=== PATIENT | female | born 1995 | race Caucasian/White ===

== ENCOUNTER 2021-08-03 21:01 | Emergency (ER) | payer SELFPAY ==
[2021-08-03 21:08] VITALS: BP 145/81; PULSE 94; RESP 18; TEMP 36.1; O2SAT 100
[2021-08-03 22:21] VITALS: BP 142/83; PULSE 105; RESP 20; TEMP 37.2; O2SAT 100
--- NOTE | 2021-08-03 22:23 | ECG_ITS ---
Measurements Intervals [place] Rate: 87 P: 72 OR: 127 QRS: 58 QRSD: 78 T: 5 QT: 344 QTc: 414 Interpretive Statements SINUS RHYTHM BORDERLINE ST-T WAVE ABNORMALITY- ANT/INF LEADS BORDERLINE ECG Electronically Signed On 08-04-2021 7:12:29 CDT by Elvis Caldwell D.O.
--- NOTE | 2021-08-03 22:24 | ED.GENADULT ---
HPI - General Adult General Chief complaint: Unspecified Stated complaint: almost passed out/having miscarriage Time Seen by Provider: 08/03/21 22:19 Source: patient History of Present Illness HPI narrative: Patient presents with dizziness. Patient reports she was waiting in line to for dinner when she had sudden onset of abdominal pain that was sharp, some lightheadedness she sat down and her symptoms improved after a minute. She was recently evaluated at an urgent care and diagnosed with a early miscarriage she was unsure if today's symptoms were related to that diagnosis so she came to the ER for further evaluation. Patient ports she has no complaints at this time. Reports her pain and bleeding have been improving since her diagnosis. Denies any recent hospitalizations or surgeries denies prior history of blood clots denies any chest pain shortness of breath or current lightheadedness. Denies any recent fevers, cough, congestion. Related Data Home Medications Medication Instructions Recorded Confirmed No Home Medications 08/03/21 08/03/21 Allergies Allergy/AdvReac Type Severity Reaction Status Date / Time No Known Allergies Allergy Verified 08/03/21 21:02 Review of Systems Review of Systems: CONSTITUTIONAL: Denies fever, chills, or sweats. EYES: Denies visual changes, redness, or discharge. ENT: Denies rhinorrhea, congestion, sore throat, or otalgia. CARDIOVASCULAR: Denies chest pain, palpitations, or edema. RESPIRATORY: Denies cough or dyspnea. GASTROINTESTINAL: Denies abdominal pain, nausea, vomiting, or diarrhea. GENITOURINARY: Denies dysuria or hematuria. SKIN: Denies rash or itching. MUSCULOSKELETAL: Denies back pain, joint pain, or myalgia. NEUROLOGIC: Denies headache, numbness, or weakness. PSYCHIATRIC: Denies anxiety or depression. All systems reviewed & are unremarkable except as noted in HPI and below Exam Narrative: GENERAL: Well-appearing, well-nourished, and in no acute distress. HEAD: Normocephalic, atraumatic. EYES: PERRLA and EOMI. ENT: Nares clear, no rhinorrhea or epistaxis. Mucous membranes moist. NECK: Supple. No masses. No JVD CHEST: Clear to auscultation. No respiratory distress. No wheezes rales or rhonchi HEART: Regular rate and rhythm. No murmur heard. Normal peripheral pulses. ABDOMEN: Soft, nontender, nondistended, normal active bowel sounds. EXTREMITIES: Normal range of motion. No edema. SKIN: Warm, dry, no rash. NEURO: No focal deficits. Alert and oriented x3. PSYCH: Normal mood and affect. Course Reevaluation(s) Reevaluation #1: Patient resting comfortably results reviewed with patient. Patient's hCG was 14 however she is going through a miscarriage that she would be approximately 6 weeks if she had continued her . Patient had no pelvic pain at the time of my exam she was offered further imaging however given the low hCG unlikely to to show any abnormalities. Given patient is currently going through miscarriage is hCG is likely downtrending. Patient was comfortable without pursuing further imaging at this time as she is remained asymptomatic throughout her ER stay. Patient prefers to follow-up with primary care physician and OB. Patient's has had some difficulty finding a provider who will take her insurance she was given a directory and list of PCM as well as OBs in the area Date: 08/04/21 Time: 00:10 Vital Signs Vital signs: Vital Signs Temperature 36.1 C L 08/03/21 21:08 Pulse Rate 94 08/03/21 21:08 Respiratory Rate 18 08/03/21 21:08 Blood Pressure 145/81 H 08/03/21 21:08 Pulse Oximetry 100 08/03/21 21:08 Oxygen Delivery Room Air 08/03/21 21:08 Temperature 37.2 C 08/03/21 22:21 Pulse Rate 83 08/04/21 00:40 Respiratory Rate 20 08/04/21 00:40 Blood Pressure 126/75 08/04/21 00:40 Pulse Oximetry 99 08/04/21 00:40 Oxygen Delivery Room Air 08/03/21 22:21 Medical Decision Making MDM Narrative Medical decision
[2021-08-03 23:01] LABS: Basophils Percent Auto 0.6 % (0.2-1.2); Eosinophils Percent Auto 0.5 % (0-4.4); Hematocrit 38.8 % (37.0-47.0); Hemoglobin 12.9 g/dL (12.0-15.0); Immature Granulocyte Absolute 0.02 K/mm3 (0.00-0.031); Immature Granulocyte Percent A 0.3 % (0-0.5); Lymphocytes Absolute Auto 1.25 K/mm3 (0.9-3.2); Lymphocytes Percent Auto 18.9 % (18.3-44.2); Mean Corpuscular HGB Conc 33.2 g/dl (32-36); Mean Corpuscular Hemoglobin 30.9 pg (26-34); Mean Corpuscular Volume 92.8 fl (80-100); Mean Platelet Volume 9.2 fl (7.4-10.4); Monocytes Absolute Auto 0.5 K/mm3 (0.1-0.6); Monocytes Percent Auto 8.1 % (2.6-8.5); Neutrophils Absolute Auto 4.8 K/mm3 (1.3-6.7); Neutrophils Percent Auto 71.6 % (45.5-73.1); Platelet Count Result 269 k/mm3 (150-375); Red Blood Count 4.18 M/mm3 (4.2-5.4); Red Cell Distribution Width 11.9 % (11.5-14.5); White Blood Count 6.6 K/mm3 (4.5-10.0)
[2021-08-03 23:18] LABS: Alanine Aminotransferase 16 U/L (6-35); Albumin Level 4.7 g/dL (3.5-5.1); Alkaline Phosphatase 45 U/L (38-126); Anion Gap 8 mmol/L (8-16); Aspartate Amino Transferase 31 U/L (14-36); Bilirubin,Total 0.4 mg/dL (0.2-1.3); Blood Urea Nitrogen 13 mg/dL (7-17); Calcium 9.2 mg/dL (8.4-10.2); Carbon Dioxide 24 mmol/L (22-30); Chloride 105 mmol/L (98-107); Estimated CRCL calculation 109 ml/min; Estimated Glomerular Filt Rate > 60; Glucose 129 mg/dL (65-110); Sodium 137 mmol/L (137-145)
[2021-08-03 23:36] LABS: Beta HCG Quantitative 14.95 mIU/ML
[2021-08-04 00:40] VITALS: BP 126/75; PULSE 83; RESP 20; O2SAT 99
== END 2021-08-04 00:40 | disposition home or self-care (01) ==
PROVIDERS: Emergency Provider Emergency Medicine
DX: R42 Dizziness and giddiness (principal); O03.9 Complete or unspecified spontaneous abortion without complication; R94.31 Abnormal electrocardiogram [ECG] [EKG]
CPT/HCPCS: 36415; 80053; 84702; 85025; 93005; 99283

== ENCOUNTER 2022-10-22 15:51 | Outpatient (CLI) | payer BC, SELFPAY ==
[2022-10-22 16:47] VITALS: BP 155/93; PULSE 91; PULSE 92; BMI 31.5
[2022-10-22 17:00] VITALS: BP 141/88; PULSE 88
[2022-10-22 17:07] LABS: Basophils Percent Auto 0.4 % (0.2-1.2); Eosinophils Absolute Auto 0.1 K/mm3 (0-0.3); Eosinophils Percent Auto 0.9 % (0-4.4); Hematocrit 30.2 % (37.0-47.0); Immature Granulocyte Absolute 0.07 K/mm3 (0.00-0.031); Immature Granulocyte Percent A 0.8 % (0-0.5); Lymphocytes Absolute Auto 1.34 K/mm3 (0.9-3.2); Lymphocytes Percent Auto 15.7 % (18.3-44.2); Mean Corpuscular HGB Conc 33.1 g/dl (32-36); Mean Corpuscular Hemoglobin 31.1 pg (26-34); Mean Corpuscular Volume 93.8 fl (80-100); Mean Platelet Volume 9.6 fl (7.4-10.4); Monocytes Absolute Auto 0.9 K/mm3 (0.1-0.6); Monocytes Percent Auto 10.2 % (2.6-8.5); Neutrophils Absolute Auto 6.1 K/mm3 (1.3-6.7); Platelet Count Result 206 k/mm3 (150-375); Red Blood Count 3.22 M/mm3 (4.2-5.4); Red Cell Distribution Width 13.2 % (11.5-14.5); White Blood Count 8.5 K/mm3 (4.5-10.0)
[2022-10-22 17:11] LABS: Appearance Urine Clear (Clear); Bacteria Urine None Seen /hpf; Bilirubin Urine Negative (Negative); Blood Urine Negative (Negative); Color Urine Yellow (Yellow); Glucose Urine UA Negative (Negative); Ketones Urine Negative (Negative); Leukocyte Esterase Ur Trace LEU/UL (Negative); Nitrate Urine Negative (Negative); Non Pathogenic Casts 0-2; Protein Urine Negative (Negative); RBC Urine 0-2 /hpf (0-2); Squamous Epithelial Cell Urine None seen /hpf (Few); Urobilinogen Urine 0.2 mg/dL (<2.0); WBC Urine 0-5 /hpf
[2022-10-22 17:13] LABS: Add Urine Microscopic? YES
[2022-10-22 17:15] VITALS: BP 148/94; PULSE 84; RESP 16; TEMP 36.7
[2022-10-22 17:17] LABS: Alanine Aminotransferase 15 U/L (6-35); Albumin Level 3.6 g/dL (3.5-5.1); Alkaline Phosphatase 110 U/L (38-126); Anion Gap 7 mmol/L (8-16); Aspartate Amino Transferase 24 U/L (14-36); Bilirubin,Total 0.3 mg/dL (0.2-1.3); Blood Urea Nitrogen 8 mg/dL (7-17); Calcium 9.1 mg/dL (8.4-10.2); Carbon Dioxide 24 mmol/L (22-30); Chloride 103 mmol/L (98-107); Estimated CRCL calculation 130 ml/min; Estimated Glomerular Filt Rate > 60; Glucose 100 mg/dL (65-110); Potassium 3.3 mmol/L (3.4-5.0); Sodium 134 mmol/L (137-145); Uric Acid 3.1 mg/dL (2.5-7.5)
[2022-10-22 17:21] LABS: Creatinine Urine 65.5 mg/dL; Total Protein Urine Random 18 mg/dL; Ur Ttl Prot Creatinine Ratio 0.27 mg/mg (0-0.20)
[2022-10-22 17:30] VITALS: BP 149/95; PULSE 95
--- NOTE | 2022-10-22 17:41 | PC.NURSE ---
Sarahy NEWMANM informed of BP's and lab results. Order received to have pt increase Labetalol to 300 mg by mouth BID and to be seen in office on Thursday for BP check.
[2022-10-22 17:45] VITALS: BP 147/92; PULSE 94
== END 2022-10-22 17:51 | disposition home or self-care (01) ==
LOC: ANHOBOP 15:56 → ANHOBPP 15:56
PROVIDERS: Visit Provider Advanced Practice Midwife
DX: O13.9 Gestational [pregnancy-induced] hypertension without significant proteinuria, unspecified trimester (principal); Z3A.00 Weeks of gestation of pregnancy not specified
CPT/HCPCS: 36415; 59025; 80053; 81001; 82570; 84156; 84550; 85025; 99199

== ENCOUNTER 2022-10-29 15:13 | Outpatient (CLI) | payer BC, SELFPAY ==
[2022-10-29 15:44] VITALS: BP 148/97; PULSE 83
[2022-10-29 15:53] LABS: Basophils Percent Auto 0.3 % (0.2-1.2); Eosinophils Absolute Auto 0.1 K/mm3 (0-0.3); Eosinophils Percent Auto 1.1 % (0-4.4); Hematocrit 32.6 % (37.0-47.0); Hemoglobin 10.6 g/dL (12.0-15.0); Immature Granulocyte Absolute 0.09 K/mm3 (0.00-0.031); Lymphocytes Absolute Auto 1.34 K/mm3 (0.9-3.2); Lymphocytes Percent Auto 14.9 % (18.3-44.2); Mean Corpuscular HGB Conc 32.5 g/dl (32-36); Mean Corpuscular Hemoglobin 30.8 pg (26-34); Mean Corpuscular Volume 94.8 fl (80-100); Mean Platelet Volume 9.8 fl (7.4-10.4); Monocytes Percent Auto 10.7 % (2.6-8.5); Neutrophils Absolute Auto 6.5 K/mm3 (1.3-6.7); Platelet Count Result 220 k/mm3 (150-375); Red Blood Count 3.44 M/mm3 (4.2-5.4); Red Cell Distribution Width 13.6 % (11.5-14.5)
[2022-10-29 16:00] VITALS: BP 140/92; PULSE 73
[2022-10-29 16:07] LABS: Alanine Aminotransferase 15 U/L (6-35); Albumin Level 3.9 g/dL (3.5-5.1); Alkaline Phosphatase 119 U/L (38-126); Anion Gap 9 mmol/L (8-16); Aspartate Amino Transferase 22 U/L (14-36); Bilirubin,Total 0.3 mg/dL (0.2-1.3); Blood Urea Nitrogen 7 mg/dL (7-17); Calcium 10.4 mg/dL (8.4-10.2); Carbon Dioxide 21 mmol/L (22-30); Chloride 104 mmol/L (98-107); Estimated Glomerular Filt Rate > 60; Glucose 92 mg/dL (65-110); Potassium 3.9 mmol/L (3.4-5.0); Sodium 134 mmol/L (137-145); Uric Acid 3.6 mg/dL (2.5-7.5)
[2022-10-29 16:10] VITALS: BP 148/97; PULSE 73
[2022-10-29 16:15] VITALS: BP 139/93; PULSE 70
[2022-10-29 16:18] LABS: Appearance Urine Clear (Clear); Bilirubin Urine Negative (Negative); Blood Urine Negative (Negative); Color Urine Yellow (Yellow); Creatinine Urine 26.7 mg/dL; Glucose Urine UA Negative (Negative); Ketones Urine Negative (Negative); Leukocyte Esterase Ur Trace LEU/UL (NEGATIVE); Nitrate Urine Negative (Negative); Protein Urine Negative (Negative); Specific Grav Ur 1.015 (1.001-1.035); Total Protein Urine Random 14 mg/dL; Ur Ttl Prot Creatinine Ratio 0.52 mg/mg (0-0.20); Urobilinogen Urine 0.2 mg/dL (<2.0)
[2022-10-29 16:27] LABS: RBC Urine None seen /hpf (0-2)
[2022-10-29 16:28] LABS: WBC Urine 0-5 /hpf (0-3)
[2022-10-29 16:29] LABS: Bacteria Urine Trace /hpf
[2022-10-29 16:30] LABS: Squamous Epithelial Cell Urine Few /hpf (Few)
[2022-10-29 16:31] LABS: Add Urine Microscopic? YES
[2022-10-29 16:44] VITALS: BP 149/97; PULSE 83
== END 2022-10-29 16:45 | disposition home or self-care (01) ==
LOC: ANHOBOP 15:17 → ANHOBPP 15:17
PROVIDERS: Visit Provider Advanced Practice Midwife
DX: O13.9 Gestational [pregnancy-induced] hypertension without significant proteinuria, unspecified trimester (principal); Z3A.00 Weeks of gestation of pregnancy not specified
CPT/HCPCS: 36415; 59025; 80053; 81001; 82570; 84156; 84550; 85025; 87086; 99199

== ENCOUNTER 2022-11-01 21:45 | Outpatient (CLI) | payer BC, SELFPAY ==
[2022-11-01 22:16] VITALS: BP 144/98; PULSE 85
[2022-11-01 22:25] VITALS: BP 159/99; PULSE 74
[2022-11-01 22:31] VITALS: BP 147/95; PULSE 80
[2022-11-01 22:41] VITALS: BP 144/92; PULSE 76
== END 2022-11-01 22:54 | disposition home or self-care (01) ==
LOC: ANHOBOP 21:57 → ANHOBPP 21:59
PROVIDERS: Visit Provider Obstetrics & Gynecology
DX: O13.9 Gestational [pregnancy-induced] hypertension without significant proteinuria, unspecified trimester (principal); Z3A.00 Weeks of gestation of pregnancy not specified
CPT/HCPCS: 59025; 99199

== ENCOUNTER 2022-11-04 11:12 | Outpatient (CLI) | payer BC, SELFPAY ==
[2022-11-04 11:34] VITALS: BP 138/101; PULSE 85
[2022-11-04 11:45] VITALS: BP 140/97; PULSE 81
[2022-11-04 11:47] LABS: Basophils Percent Auto 0.4 % (0.2-1.2); Eosinophils Absolute Auto 0.1 K/mm3 (0-0.3); Eosinophils Percent Auto 0.6 % (0-4.4); Hematocrit 33.5 % (37.0-47.0); Hemoglobin 11.2 g/dL (12.0-15.0); Immature Granulocyte Absolute 0.06 K/mm3 (0.00-0.031); Immature Granulocyte Percent A 0.6 % (0-0.5); Lymphocytes Absolute Auto 1.19 K/mm3 (0.9-3.2); Lymphocytes Percent Auto 12.2 % (18.3-44.2); Mean Corpuscular HGB Conc 33.4 g/dl (32-36); Mean Corpuscular Hemoglobin 31.1 pg (26-34); Mean Corpuscular Volume 93.1 fl (80-100); Mean Platelet Volume 9.8 fl (7.4-10.4); Monocytes Absolute Auto 0.9 K/mm3 (0.1-0.6); Monocytes Percent Auto 8.7 % (2.6-8.5); Neutrophils Absolute Auto 7.6 K/mm3 (1.3-6.7); Neutrophils Percent Auto 77.5 % (45.5-73.1); Platelet Count Result 228 k/mm3 (150-375); Red Cell Distribution Width 13.5 % (11.5-14.5); White Blood Count 9.8 K/mm3 (4.5-10.0)
[2022-11-04 11:50] LABS: Appearance Urine Clear (Clear); Bacteria Urine None Seen /hpf; Bilirubin Urine Negative (Negative); Blood Urine Negative (Negative); Color Urine Yellow (Yellow); Glucose Urine UA Negative (Negative); Ketones Urine Negative (Negative); Leukocyte Esterase Ur 1+ LEU/UL (NEGATIVE); Nitrate Urine Negative (Negative); Non Pathogenic Casts 0-2; Protein Urine Negative (Negative); RBC Urine 0-2 /hpf (0-2); Specific Grav Ur 1.008 (1.001-1.035); Squamous Epithelial Cell Urine Occasional /hpf (Few); Urobilinogen Urine 0.2 mg/dL (<2.0)
[2022-11-04 11:51] LABS: Add Urine Microscopic? YES
[2022-11-04 11:54] LABS: Creatinine Urine 77.7 mg/dL; Total Protein Urine Random 20 mg/dL; Ur Ttl Prot Creatinine Ratio 0.26 mg/mg (0-0.20)
[2022-11-04 11:59] LABS: Alanine Aminotransferase 14 U/L (6-35); Albumin Level 3.8 g/dL (3.5-5.1); Alkaline Phosphatase 140 U/L (38-126); Anion Gap 9 mmol/L (8-16); Aspartate Amino Transferase 25 U/L (14-36); Bilirubin,Total 0.3 mg/dL (0.2-1.3); Blood Urea Nitrogen 4 mg/dL (7-17); Calcium 9.3 mg/dL (8.4-10.2); Carbon Dioxide 20 mmol/L (22-30); Chloride 104 mmol/L (98-107); Estimated Glomerular Filt Rate > 60; Glucose 93 mg/dL (65-110); Potassium 3.7 mmol/L (3.4-5.0); Sodium 133 mmol/L (137-145); Uric Acid 4.1 mg/dL (2.5-7.5)
[2022-11-04 12:00] VITALS: BP 138/89; PULSE 83
--- NOTE | 2022-11-04 12:10 | PC.NURSE ---
Called Sarahy Martinez CNM with lab results, BPs and pt status. Pt complaining of nausea and elevated BP. July D/C home.
== END 2022-11-04 12:13 | disposition home or self-care (01) ==
LOC: ANHOBOP 11:18 → ANHOBPP 11:19
PROVIDERS: Visit Provider Advanced Practice Midwife
DX: O13.9 Gestational [pregnancy-induced] hypertension without significant proteinuria, unspecified trimester (principal); Z3A.00 Weeks of gestation of pregnancy not specified
CPT/HCPCS: 36415; 59025; 80053; 81001; 82570; 84156; 84550; 85025; 87086; 99199

== ENCOUNTER 2022-11-05 15:25 | Outpatient (RCR) | payer BC, SELFPAY ==
[2022-11-01 11:55] VITALS: BP 142/90; PULSE 104
[2022-11-05 16:10] LABS: Basophils Percent Auto 0.4 % (0.2-1.2); Eosinophils Absolute Auto 0.1 K/mm3 (0-0.3); Eosinophils Percent Auto 0.7 % (0-4.4); Hematocrit 32.6 % (37.0-47.0); Hemoglobin 10.9 g/dL (12.0-15.0); Immature Granulocyte Absolute 0.07 K/mm3 (0.00-0.031); Immature Granulocyte Percent A 0.8 % (0-0.5); Lymphocytes Absolute Auto 1.32 K/mm3 (0.9-3.2); Lymphocytes Percent Auto 14.8 % (18.3-44.2); Mean Corpuscular HGB Conc 33.4 g/dl (32-36); Mean Corpuscular Hemoglobin 31.2 pg (26-34); Mean Corpuscular Volume 93.4 fl (80-100); Mean Platelet Volume 9.8 fl (7.4-10.4); Monocytes Absolute Auto 0.9 K/mm3 (0.1-0.6); Monocytes Percent Auto 9.7 % (2.6-8.5); Neutrophils Absolute Auto 6.6 K/mm3 (1.3-6.7); Neutrophils Percent Auto 73.6 % (45.5-73.1); Platelet Count Result 237 k/mm3 (150-375); Red Blood Count 3.49 M/mm3 (4.2-5.4); Red Cell Distribution Width 13.7 % (11.5-14.5); White Blood Count 8.9 K/mm3 (4.5-10.0)
[2022-11-05 16:21] LABS: Alanine Aminotransferase 13 U/L (6-35); Albumin Level 3.5 g/dL (3.5-5.1); Alkaline Phosphatase 133 U/L (38-126); Anion Gap 10 mmol/L (8-16); Aspartate Amino Transferase 24 U/L (14-36); Bilirubin,Total 0.3 mg/dL (0.2-1.3); Blood Urea Nitrogen 5 mg/dL (7-17); Calcium 9.7 mg/dL (8.4-10.2); Carbon Dioxide 18 mmol/L (22-30); Chloride 104 mmol/L (98-107); Estimated Glomerular Filt Rate > 60; Glucose 116 mg/dL (65-110); Potassium 3.8 mmol/L (3.4-5.0); Sodium 132 mmol/L (137-145); Uric Acid 3.9 mg/dL (2.5-7.5)
[2022-11-05 16:48] LABS: Creatinine Urine 83.2 mg/dL; Total Protein Urine Random 25 mg/dL
== END 2022-11-05 15:45 | disposition home or self-care (01) ==
LOC: ANHOBOP 15:25
PROVIDERS: Advanced Practice Midwife; Visit Provider Obstetrics & Gynecology
DX: O26.893 Other specified pregnancy related conditions, third trimester (principal); R03.0 Elevated blood-pressure reading, without diagnosis of hypertension; Z3A.35 35 weeks gestation of pregnancy
CPT/HCPCS: 36415; 59025; 80053; 82570; 84156; 84550; 85025

== ENCOUNTER 2022-11-05 19:00 | Inpatient (IN) | payer BC, SELFPAY ==
[2022-11-05] VITALS (18 sets, daily range): BP systolic 138–165; BP diastolic 84–112; PULSE 75–98; BMI 33.0
[2022-11-05] MEDS: NIFEdipine 30 MG TAB.ER.24 PO (16:39)
--- NOTE | 2022-11-05 18:12 | PM.IMHP ---
H&P: HPI History of Present Illness Date/Time: 11/05/22 18:12 Chief Complaint: pt sent from office for elevated blood pressures. Pt has been diagnosed with preeclampsia after elevated PCR. Pt denies headache, visual changes, epigastric pain. Pt is currently on 400mg labetalol bid. Fetus is currently in breech position. has been complicated by anemia and marginal cord insertion. 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 pt was given 30mg procardia XL on arrival and blood pressures currently ranging 140-150/90/100 Review of Systems Review of Systems: All systems reviewed & are unremarkable except as noted in HPI and below Meds Home Medications and Allergies Home Medications Medication Instructions Recorded Confirmed Type ferrous sulfate 142 mg (45 mg 142 mg PO BID 10/22/22 11/05/22 History iron) tablet,extended release (Slow Fe) labetalol 200 mg tablet 400 mg PO BID 10/22/22 11/05/22 History vit no.95-ferrous 1 tablet PO DAILY 10/22/22 11/05/22 History fumarate 28 mg-folic acid 800 mcg tablet () Allergies Allergy/AdvReac Type Severity Reaction Status Date / Time No Known Allergies Allergy Verified 08/03/21 21:02 Vital Signs Vital Signs - 24 hr 11/05/22 16:31 11/05/22 16:46 11/05/22 17:02 Pulse Rate 77 75 77 Blood Pressure 155/97 H 145/94 H 149/99 H Blood Pressure [Left Arm] 11/05/22 17:16 11/05/22 17:31 11/05/22 17:46 Pulse Rate 75 87 75 Blood Pressure 156/102 H 158/97 H 145/94 H Blood Pressure [Left Arm] 11/05/22 18:01 11/05/22 15:50 11/05/22 16:20 Pulse Rate 92 76 83 Blood Pressure 159/105 H Blood Pressure [Left Arm] 155/98 H 153/104 H Exam Const: General: cooperative, healthy appearing and comfortable Resp: Effort & Inspection: normal respiratory effort Cardio: Rate: regular rate Rhythm: regular rhythm GI: Other: gravid, soft Back/Spine/Pelvis: Back: no CVA tenderness Skin: General skin exam: normal color Neuro: General: patient oriented x3 Extrem: Right lower extremity: normal to inspection Left lower extremity: normal to inspection Psych: Appearance: grossly normal Assessment and Plan Assessment and plan (1) Breech position of fetus: Status: Acute (2) Preeclampsia: Code(s): O14.90 - Unspecified pre-eclampsia, unspecified trimester Status: Acute (3) Anemia: Code(s): D64.9 - Anemia, unspecified Status: Acute Plan 36.1 weeks gestation preeclampsia without severe features labs stable increase labetalol to 500mg steroids for lung maturity dr Carmen franklin co-managing care
[2022-11-05] MEDS: LABETALOL HCL 100 MG TABLET 500 MG PO (18:30)
[2022-11-05] MEDS: BETAMETHASONE SOD PHOS/ACETATE 30 MG/5 ML VIAL 12 MG IM (19:15)
--- NOTE | 2022-11-05 19:30 | OBADM ---
This patient, Zee Fernandez, admitted to the OB room Labor/Delivery/Recovery 118 for observation. Patient/family oriented to hospital policies and general routines including ID bracelet, bed and alarms, visiting hours, pain management, procedures, bathroom and other care routines, personal items, smoking policy, room service/diet, and visiting hours. Patient/Family are encouraged to report perceived risks to care and to ask questions if they do not understand what they are told or what they should do.
[2022-11-06] VITALS (29 sets, daily range): BP systolic 125–158; BP diastolic 79–99; PULSE 86–112; RESP 16–18; TEMP 36.6–36.8
[2022-11-06] MEDS: LABETALOL HCL 100 MG TABLET 500 MG PO ×2 (06:48→18:56)
[2022-11-06 07:03] LABS: Hematocrit 32.9 % (37.0-47.0); Hemoglobin 10.9 g/dL (12.0-15.0); Mean Corpuscular HGB Conc 33.1 g/dl (32-36); Mean Corpuscular Hemoglobin 31.1 pg (26-34); Mean Corpuscular Volume 93.7 fl (80-100); Mean Platelet Volume 9.4 fl (7.4-10.4); Platelet Count Result 247 k/mm3 (150-375); Red Blood Count 3.51 M/mm3 (4.2-5.4); Red Cell Distribution Width 13.5 % (11.5-14.5); White Blood Count 11.5 K/mm3 (4.5-10.0)
[2022-11-06 07:16] LABS: Alanine Aminotransferase 15 U/L (6-35); Albumin Level 3.9 g/dL (3.5-5.1); Alkaline Phosphatase 146 U/L (38-126); Anion Gap 10 mmol/L (8-16); Aspartate Amino Transferase 25 U/L (14-36); Bilirubin,Total 0.5 mg/dL (0.2-1.3); Blood Urea Nitrogen 7 mg/dL (7-17); Calcium 8.8 mg/dL (8.4-10.2); Carbon Dioxide 19 mmol/L (22-30); Chloride 105 mmol/L (98-107); Estimated CRCL calculation 102 ml/min; Estimated Glomerular Filt Rate > 60; Glucose 112 mg/dL (65-110); Potassium 4.3 mmol/L (3.4-5.0); Sodium 134 mmol/L (137-145); Uric Acid 4.8 mg/dL (2.5-7.5)
--- NOTE | 2022-11-06 08:36 | PM.IMHP ---
H&P: HPI History of Present Illness Date/Time: 11/06/22 08:36 Chief Complaint: pelvic pain, contractions Narrative: 27-year-old multiparous female at 34 weeks gestation with twins. She reports contractions and pelvic pain. She reports increasing pressure. She reports leaking fluid. Testing For amniotic fluid was negative. she is having occasional contractions on the monitor. Her twins are reactive x2. There is no vaginal bleeding. No cervical change. To discharge with close observation. Short-term follow-up. Review of Systems Review of Systems: All systems reviewed & are unremarkable except as noted in HPI and below Constitutional: Constitutional: Denies chills, Denies fatigue, Denies fever(s) and Denies weakness Eyes: Eyes: Denies blurry vision, Denies change in vision, Denies loss of peripheral vision, Denies loss of vision, Denies other visual disturbances and Denies eye pain ENT: Denies vertigo, Denies dizziness, Denies hearing loss, Denies mouth pain, Denies nasal obstruction, Denies neck mass and Denies neck pain Cardiovascular: Cardiovascular: Denies chest pain, Denies diaphoresis, Denies syncope, Denies leg edema and Denies dyspnea Respiratory: Respiratory: Denies chest congestion, Denies cough, Denies hemoptysis, Denies dyspnea and Denies wheezing Gastrointestinal: Gastrointestinal: Denies abdominal pain, Denies constipation, Denies diarrhea, Denies nausea and Denies vomiting Genitourinary: Genitourinary: Denies hematuria, Denies change in libido, Denies nocturia, Denies genital lesions, Denies flank pain and Denies urinary urgency Musculoskeletal: Musculoskeletal: Denies abnormal gait, Denies back pain, Denies myalgias, Denies arthralgias, Denies joint swelling, Denies muscle weakness and Denies neck pain Integumentary/Breasts: Skin/Breast: Denies swelling, Denies breast pain, Denies breast mass, Denies dry skin, Denies nipple discharge, Denies unusual bruising and Denies jaundice Neurologic: Denies Neuro-related abnormal movements, Denies Abnormal speech present, Denies abnormal gait, Denies behavioral changes, Denies confusion, Denies vertigo, Denies dizziness, Denies syncope, Denies loss of vision, Denies memory loss, Denies convulsions and Denies weakness Psychiatric: Psychiatric: Denies abnormal sleep pattern, Denies behavioral changes, Denies change in libido, Denies confusion, Denies depression, Denies anhedonia and Denies memory loss Endocrine: Endocrine: Reports no additional endocrine complaints, Denies change in libido and Denies fatigue Hematologic/Lymphatic: Hematologic/Lymphatic: Reports no additional hematologic/lymphatic complaints Allergic/Immunologic: Allergic/Immunologic: Reports no additional allergic/immunologic complaints and Denies wheezing Meds Home Medications and Allergies Home Medications Medication Instructions Recorded Confirmed Type ferrous sulfate 142 mg (45 mg 142 mg PO BID 10/22/22 11/05/22 History iron) tablet,extended release (Slow Fe) labetalol 200 mg tablet 400 mg PO BID 10/22/22 11/05/22 History vit no.95-ferrous 1 tablet PO DAILY 10/22/22 11/05/22 History fumarate 28 mg-folic acid 800 mcg tablet () Allergies Allergy/AdvReac Type Severity Reaction Status Date / Time No Known Allergies Allergy Verified 08/03/21 21:02 Vital Signs Vital Signs - 24 hr 11/05/22 16:31 11/05/22 16:46 11/05/22 17:02 Pulse Rate 77 75 77 Blood Pressure 155/97 H 145/94 H 149/99 H Blood Pressure [Left Arm] Oxygen Delivery 11/05/22 17:16 11/05/22 17:31 11/05/22 17:46 Pulse Rate 75 87 75 Blood Pressure 156/102 H 158/97 H 145/94 H Blood Pressure [Left Arm] Oxygen Delivery 11/05/22 18:01 11/05/22 18:16 11/05/22 18:31 Pulse Rate 92 98 80 Blood Pressure 159/105 H 165/112 H 162/97 H Blood Pressure [Left Arm] Oxygen Delivery 11/05/22 18:46 11/05/22 19:01 11/05/22 19:36 Pulse Rate 80 82 91 Blood Pressure 156/93 H
--- NOTE | 2022-11-06 08:42 | PM.OBPNVD ---
OB - PN: Subj Subjective Date/time seen: 11/06/22 08:42 Interval history: pt admitted overnight to monitor blood pressures. repeat labs this morning are stable. preeclampsia with increasing blood pressures. denies headache, visual changes, epigastric pain. denies pain OB - PN: Obj Data Labs 11/06/22 06:52 11/06/22 06:52 Labs: Laboratory Results - last 24 hr 11/06/22 06:52 WBC 11.5 H RBC 3.51 L Hgb 10.9 L Hct 32.9 L MCV 93.7 MCH 31.1 MCHC 33.1 RDW 13.5 Plt Count 247 MPV 9.4 Sodium 134 L Potassium 4.3 Chloride 105 Carbon Dioxide 19 L Anion Gap 10 BUN 7 Creatinine 0.80 Estim Creat Clear Calc 102 Estimated GFR > 60 Glucose 112 H Uric Acid 4.8 Calcium 8.8 Total Bilirubin 0.5 AST 25 ALT 15 Alkaline Phosphatase 146 H Total Protein 7.0 Albumin 3.9 OB - PN A/P Assessment and Plan (1) Anemia: Code(s): D64.9 - Anemia, unspecified Status: Acute (2) Preeclampsia: Code(s): O14.90 - Unspecified pre-eclampsia, unspecified trimester Status: Acute (3) Breech position of fetus: Status: Acute Plan preeclampsia continue to monitor blood pressures plan steroids tonight section tomorrow, breech presentation co-managing with dr. franklin Time Spent With Patient Time: Total time spent is greater than 50% in coordination of care (as documented) at patient's floor/unit and/or counseling patient: Exam Const: General: cooperative and healthy appearing Chest: Chest palpation & inspection: normal inspection of the chest Resp: Effort & Inspection: normal respiratory effort Cardio: Rate: regular rate Rhythm: regular rhythm GI: Other: gravid/soft Skin: General skin exam: normal color Extrem: Right lower extremity: normal to inspection Left lower extremity: normal to inspection Psych: Appearance: grossly normal
--- NOTE | 2022-11-06 14:39 | LDADM ---
This patient, Zee Fernandez, was changed to inpatient status to OB 116 on 11/05/22 at 19:00. Plans for labor, pain management and were discussed with patient. Patient/family oriented to hospital policies and general routines including ID bracelet, bed and alarms, visiting hours, pain management, procedures, bathroom and other care routines, personal items, smoking policy, room service/diet and guest tray routines, security routines, and visiting hours. Patient/Family are encouraged to report perceived risks to care and to ask questions if they do not understand what they are told or what they should do. See OBIX for further documentation.
--- NOTE | 2022-11-06 15:01 | PC.NURSE ---
I was discussing pre-op and post op procedures with pt when it checked her BP this time.
[2022-11-06] MEDS: NIFEdipine 30 MG TAB.ER.24 PO (16:32)
[2022-11-06] MEDS: BETAMETHASONE SOD PHOS/ACETATE 30 MG/5 ML VIAL 12 MG IM (19:17)
--- NOTE | 2022-11-06 21:29 | PHAR ---
UNISOM SLEEP TABS BOTTLE BROUGHT FROM HOME CONTAINS BLUE TABLETS WITH UNISOM DEBOSSED ON TABLET
[2022-11-06] MEDS: FAMOTIDINE 20 MG TABLET PO (21:46)
[2022-11-06] MEDS: CALCIUM CARBONATE (TUMS) 500 MG (200 MG ELEMENTAL) PO (21:46)
[2022-11-07] VITALS (87 sets, daily range): BP systolic 116–166; BP diastolic 80–111; PULSE 79–120; RESP 15–20; TEMP 36.5–37.4; O2SAT 94–100
[2022-11-07] MEDS: LABETALOL HCL 100 MG TABLET 500 MG PO (08:26)
[2022-11-07] MEDS: LACTATED RINGERS 1,000 ML 125 ML IV CONT ×2 (11:10→11:47)
[2022-11-07] MEDS: ceFAZolin 2 GM/D5W 50 ML 2 GM/50 ML BAG IVPB (12:02)
--- NOTE | 2022-11-07 12:05 | PM.OBPNVD ---
OB - PN: Subj Subjective Date/time seen: 11/07/22 12:05 this patient is a 27-year-old gravid female who has a Very late pre-term in the breech position. She has preeclampsia. we have agreed to proceed with delivery. She understands risks. She understands that injuries may occur that result in hospitalization, more surgery, and severe illness. She understands risk of hemorrhage and infection. She denies any chest pain or shortness of breath. She denies any nausea, vomiting, fever, chills. OB - PN: Obj Data Labs 11/06/22 06:52 11/06/22 06:52 Labs: Laboratory Results - last 24 hr 11/07/22 10:19 Blood Type O Positive Antibody Screen Negative OB - PN A/P Assessment and Plan (1) Preeclampsia: Code(s): O14.90 - Unspecified pre-eclampsia, unspecified trimester Status: Acute (2) Breech position of fetus: Status: Acute Plan 27-year-old female with late pre term 36 week gestation. She has preeclampsia. We have agreed to proceed with delivery for breech. She understands risks, benefits, and alternatives. She has completed the Informed consent process is ready to proceed. Time Spent With Patient Time: Total time spent is greater than 50% in coordination of care (as documented) at patient's floor/unit and/or counseling patient: Review of Systems Review of Systems: All systems reviewed & are unremarkable except as noted in HPI and below Constitutional: Constitutional: Denies chills, Denies fatigue, Denies fever(s) and Denies weakness Eyes: Eyes: Denies blurry vision, Denies change in vision, Denies loss of peripheral vision, Denies loss of vision, Denies other visual disturbances and Denies eye pain ENT: Denies vertigo, Denies dizziness, Denies hearing loss, Denies mouth pain, Denies nasal obstruction, Denies neck mass and Denies neck pain Cardiovascular: Cardiovascular: Denies chest pain, Denies diaphoresis, Denies syncope, Denies leg edema and Denies dyspnea Respiratory: Respiratory: Denies chest congestion, Denies cough, Denies hemoptysis, Denies dyspnea and Denies wheezing Gastrointestinal: Gastrointestinal: Denies abdominal pain, Denies constipation, Denies diarrhea, Denies nausea and Denies vomiting Genitourinary: Genitourinary: Denies hematuria, Denies change in libido, Denies nocturia, Denies genital lesions, Denies flank pain and Denies urinary urgency Musculoskeletal: Musculoskeletal: Denies abnormal gait, Denies back pain, Denies myalgias, Denies arthralgias, Denies joint swelling, Denies muscle weakness and Denies neck pain Integumentary/Breasts: Skin/Breast: Denies swelling, Denies breast pain, Denies breast mass, Denies dry skin, Denies nipple discharge, Denies unusual bruising and Denies jaundice Neurologic: Denies Neuro-related abnormal movements, Denies Abnormal speech present, Denies abnormal gait, Denies behavioral changes, Denies confusion, Denies vertigo, Denies dizziness, Denies syncope, Denies loss of vision, Denies memory loss, Denies convulsions and Denies weakness Psychiatric: Psychiatric: Denies abnormal sleep pattern, Denies behavioral changes, Denies change in libido, Denies confusion, Denies depression, Denies anhedonia and Denies memory loss Endocrine: Endocrine: Reports no additional endocrine complaints, Denies change in libido and Denies fatigue Hematologic/Lymphatic: Hematologic/Lymphatic: Reports no additional hematologic/lymphatic complaints Allergic/Immunologic: Allergic/Immunologic: Reports no additional allergic/immunologic complaints and Denies wheezing Exam Const: General: cooperative, healthy appearing, comfortable and no acute distress Orientation/consciousness: oriented to person, oriented to place and oriented to time HENMT: Head: normal to inspection Ears: external ears normal Face/Nose/Sinus: Normal external nose present and normal facial exam Face and sinus: normal facial exam
--- NOTE | 2022-11-07 12:09 | WPDHPUPDATE1 ---
History and Physical Update Update Date/Time: 11/07/22 12:09 History and Physical has been reviewed, including an updated exam of the patient. There are NO changes in the patient's condition. Risks, benefits, and alternatives have been discussed and questions answered. Patient agrees to proceed with procedure.
[2022-11-07] MEDS: KETOROLAC 30 MG/ML VIAL (*BKC) IV PUSH ×2 (12:50→16:02)
--- NOTE | 2022-11-07 13:00 | W.PM.PROC2 ---
Procedure Note - Detailed Date of Procedure 11/07/22 Pre-op Diagnosis 36 weeks gestation, preeclampsia, breech Post-op Diagnosis Same Procedure Performed Low-transverse section Surgeon Olivia Murguia MD Anesthesia Spinal Findings Normal gestational maternal anatomy, average size , normal Apgars. breech Description of Procedure The patient was taken the operating room. She was prepped and draped in dorsal supine position with a leftward tilt. This was done after spinal anesthetic was applied. A low-transverse skin incision was made and carried down till of the fascia with the knife. The fascial incision was made with the knife. The fascial incision was extended laterally with Francois scissors. The fascia was tented upward superiorly and inferiorly the rectus muscles were dissected off bluntly. The rectus muscles were the midline. The preperitoneal fat and peritoneum were dissected open bluntly at the superior aspect of the rectus muscles. The peritoneal incision was extended superior and inferior with good position of bladder. The uterine incision was made with a scalpel down to the level of the amniotic cavity. The amniotic cavity was entered bluntly. The was delivered. The cord was clamped and cut and the infant was handed off to waiting pediatric staff. Cord bloods were obtained. The placenta was removed manually. The uterus was exteriorized. The uterus was cleared of all clots, debris and membranes. The uterus was closed in 0 Vicryl running lock fashion. An imbricating over a was placed along the incision line as well. The uterus was returned to the abdomen. The gutters were cleared of all clots and debris. The fascia was closed with 0 Vicryl running fashion. The subcutaneous tissue was irrigated pinpoint bleeders were cauterized. The skin was closed with subcuticular absorbable leandra. The skin incision line was covered with glue. The patient tolerated the procedure well. She has taken recovery room in stable condition. Sponge lap and needle counts were correct x2. Urine Output 150 Complications No immediate complications Condition Stable Disposition PACU
[2022-11-07] MEDS: LABETALOL HCL INJ 100 MG/20 ML VIAL 20 MG IV PUSH (13:21)
[2022-11-07] MEDS: OXYTOCIN 30 UNITS/NS 500 ML 30 UNITS/500 ML BAG 125 UNITS IV CONT (13:25)
[2022-11-07] MEDS: NIFEdipine 30 MG TAB.ER.24 PO (13:34)
[2022-11-07] MEDS: LABETALOL HCL INJ 100 MG/20 ML VIAL 40 MG IV PUSH (13:37)
[2022-11-07] MEDS: LABETALOL HCL INJ 100 MG/20 ML VIAL 80 MG IV PUSH ×2 (14:08→14:29)
[2022-11-07] MEDS: MAGNESIUM SULF 4 GM/WATER100ML 4 GM/100 ML BAG IVPB (14:45)
[2022-11-07] MEDS: MAGNESIUM SULF 20GM/WATER500ML 500 ML 50 MG IV CONT (15:02)
--- NOTE | 2022-11-07 16:39 | PC.NURSE ---
Pt denies headache, visual disturbances,epigastric pain at this time. Resp easy and non labored. Awake and oriented x3. DTR's +2. no clonus
[2022-11-07] MEDS: DEXTROSE 5%/0.45% SOD CHL 1,000 ML 125 ML IV CONT (17:31)
[2022-11-07] MEDS: SIMETHICONE 80 MG TAB.CHEW PO ×2 (17:38→21:10)
[2022-11-07] MEDS: DOCUSATE SODIUM 100 MG CAPSULE PO (17:38)
[2022-11-07] MEDS: ZOLPIDEM TARTRATE (*CRX) 5 MG TABLET PO (21:13)
[2022-11-07] MEDS: HYDROcodone/acetaminophen (*CRX) 5-325 MG TABLET 1 TAB PO (21:14)
[2022-11-08] VITALS (9 sets, daily range): BP systolic 126–153; BP diastolic 77–103; PULSE 86–96; RESP 16–18; TEMP 36.5–37.1; O2SAT 99–100
[2022-11-08] MEDS: MAGNESIUM SULF 20GM/WATER500ML 500 ML 50 MG IV CONT ×2 (01:15→11:21)
[2022-11-08] MEDS: SIMETHICONE 80 MG TAB.CHEW PO (01:17)
[2022-11-08] MEDS: HYDROcodone/acetaminophen (*CRX) 5-325 MG TABLET 1 TAB PO ×3 (01:17→20:19)
[2022-11-08] MEDS: IBUPROFEN 600 MG TABLET PO ×3 (01:17→20:19)
[2022-11-08] MEDS: KCL 20 MEQ/D5/0.45% SOD CHL 1,000 ML 75 ML IV CONT (02:47)
[2022-11-08 04:09] LABS: Basophils Percent Auto 0.2 % (0.2-1.2); Eosinophils Percent Auto 0.1 % (0-4.4); Hematocrit 27.7 % (37.0-47.0); Immature Granulocyte Absolute 0.14 K/mm3 (0.00-0.031); Immature Granulocyte Percent A 1.1 % (0-0.5); Lymphocytes Absolute Auto 1.21 K/mm3 (0.9-3.2); Lymphocytes Percent Auto 9.1 % (18.3-44.2); Mean Corpuscular HGB Conc 32.5 g/dl (32-36); Mean Corpuscular Hemoglobin 31.4 pg (26-34); Mean Corpuscular Volume 96.5 fl (80-100); Mean Platelet Volume 9.4 fl (7.4-10.4); Monocytes Absolute Auto 1.4 K/mm3 (0.1-0.6); Monocytes Percent Auto 10.5 % (2.6-8.5); Neutrophils Absolute Auto 10.5 K/mm3 (1.3-6.7); Platelet Count Result 213 k/mm3 (150-375); Red Blood Count 2.87 M/mm3 (4.2-5.4); White Blood Count 13.3 K/mm3 (4.5-10.0)
[2022-11-08 04:19] LABS: Alanine Aminotransferase 19 U/L (6-35); Albumin Level 3.1 g/dL (3.5-5.1); Alkaline Phosphatase 122 U/L (38-126); Anion Gap 4 mmol/L (8-16); Aspartate Amino Transferase 31 U/L (14-36); Bilirubin,Total 0.2 mg/dL (0.2-1.3); Blood Urea Nitrogen 7 mg/dL (7-17); Calcium 6.4 mg/dL (8.4-10.2); Carbon Dioxide 24 mmol/L (22-30); Chloride 104 mmol/L (98-107); Estimated CRCL calculation 113 ml/min; Estimated Glomerular Filt Rate > 60; Glucose 129 mg/dL (65-110); Potassium 3.9 mmol/L (3.4-5.0); Sodium 132 mmol/L (137-145); Uric Acid 3.7 mg/dL (2.5-7.5)
--- NOTE | 2022-11-08 04:55 | PM.OBPNVD ---
OB - PN: Subj Subjective Date/time seen: 11/08/22 04:55 Interval history: pt delivered 11/07/22, currently on magnesium sulfate until 1500. Bp normotensive, denies headache, visual changes, epigastric pain. pain well managed, urine output good OB - PN: Obj Data Labs 11/08/22 03:55 11/08/22 03:55 Labs: Laboratory Results - last 24 hr 11/07/22 11/08/22 10:19 03:55 WBC 13.3 H RBC 2.87 L Hgb 9.0 L Hct 27.7 L MCV 96.5 MCH 31.4 MCHC 32.5 RDW 14.0 Plt Count 213 MPV 9.4 Immature Gran % (Auto) 1.1 H Neut % (Auto) 79.0 H Lymph % (Auto) 9.1 L [place] % (Auto) 10.5 H Eos % (Auto) 0.1 Baso % (Auto) 0.2 Lymph # (Auto) 1.21 [place] # (Auto) 1.4 H Eos # (Auto) 0.0 Baso # (Auto) 0.0 Abs Immat Gran (auto) 0.14 H Absolute Neuts (auto) 10.5 H Absolute Nucleated RBC 0.0 Nucleated RBC % 0.0 Sodium 132 L Potassium 3.9 Chloride 104 Carbon Dioxide 24 Anion Gap 4 L BUN 7 Creatinine 0.70 Estim Creat Clear Calc 113 Estimated GFR > 60 Glucose 129 H Uric Acid 3.7 Calcium 6.4 L Total Bilirubin 0.2 AST 31 ALT 19 Alkaline Phosphatase 122 Total Protein 6.0 L Albumin 3.1 L Blood Type O Positive Antibody Screen Negative OB - PN A/P Plan day: 1 Comments: magnesium sulfate x 24 hours oral medication for HTN monitor for symptoms Time Spent With Patient Time: Total time spent is greater than 50% in coordination of care (as documented) at patient's floor/unit and/or counseling patient: Review of Systems Review of Systems: All systems reviewed & are unremarkable except as noted in HPI and below Exam Const: General: cooperative, healthy appearing and comfortable Resp: Effort & Inspection: normal respiratory effort Cardio: Rate: regular rate Rhythm: regular rhythm GI: Other: Incision CDI Urinary Catheter: Urinary Catheter: patent and draining Skin: General skin exam: normal color Neuro: General: patient oriented x3 Extrem: Right lower extremity: normal to inspection Left lower extremity: normal to inspection Psych: Appearance: grossly normal
[2022-11-08] MEDS: MULTIVIT/MIN/PREN/FOL AC/IRON TABLET 1 TAB PO (08:11)
[2022-11-08] MEDS: DOCUSATE SODIUM 100 MG CAPSULE PO ×2 (08:11→15:10)
[2022-11-08] MEDS: NIFEdipine 30 MG TAB.ER.24 PO ×2 (08:12→16:26)
[2022-11-08] MEDS: POLYSACCHARIDE IRON COMPLEX 150 MG CAPSULE PO ×2 (08:12→15:10)
[2022-11-08] MEDS: LABETALOL HCL 100 MG TABLET 400 MG PO ×2 (08:12→21:01)
--- NOTE | 2022-11-08 08:15 | PC.NURSE ---
Patient stated her tongue felt heavy and she feels tired believes she just needs. Denies pain. Assessment completed, VS taken, and medications administered. Pt requested to rest. VS: 99%. HR 91, RR 18, BP 150/99, T 97.7. Family at bedside. Patient remains on bedrest for magnesium sulfate infusion.
--- NOTE | 2022-11-08 09:00 | PC.NURSE ---
Pt. states she is starting to feel better and is going to nap. BP 143/92. Family at bedside.
--- NOTE | 2022-11-08 10:20 | PC.NURSE ---
Pt woke from nap, feeling much better. BP 127/90. She is going to try to go back to sleep. Family at bedside.
--- NOTE | 2022-11-08 15:00 | WPDANLDNPN2 ---
Anes-Prog Note L&D-Neuraxial Date/Time: 11/08/22 15:00 Neuraxial medications: intrathecal PF morphine Opiod-related complaints: none Patient feedback: Patient satisfied with post-operative pain management.
--- NOTE | 2022-11-08 15:00 | WPDANLDPN2 ---
Anes-Prog Note L&D Date/Time: 11/08/22 15:00 Comfortable throughout: section Neuraxial method: spinal Epidural/Spinal procedure site: clean & non-tender Neuro status: Neuro function grossly intact. Cardiovascular status: normal Respiratory status: normal Airway patency: baseline Mental status: baseline Post-Op hydration status: normal Vital Signs: Last Vital Signs Temp 36.6 C 11/08/22 11:45 Pulse 86 11/08/22 11:45 Resp 16 11/08/22 11:45 BP 127/92 H 11/08/22 11:45 Pulse Ox 99 11/08/22 11:45 O2 Del Method Room Air 11/07/22 18:42 Pain score (VAS): 3/10 I/O: Intake & Output 11/07/22 11/08/22 11/08/22 23:59 07:59 15:59 Intake Total 100 6500 3310 Output Total 300 5200 4200 Balance -200 1300 -890 Post-procedural complaints: none Patient feedback: Patient satisfied with anesthetic care.
[2022-11-09] VITALS (8 sets, daily range): BP systolic 120–153; BP diastolic 76–94; PULSE 78–104; RESP 14–18; TEMP 36.2–37.3; O2SAT 98–100
[2022-11-09] MEDS: HYDROcodone/acetaminophen (*CRX) 5-325 MG TABLET 1 TAB PO ×7 (00:09→23:10)
[2022-11-09] MEDS: IBUPROFEN 600 MG TABLET PO ×4 (02:10→23:52)
[2022-11-09] MEDS: SIMETHICONE 80 MG TAB.CHEW PO ×4 (02:10→21:06)
[2022-11-09] MEDS: POLYSACCHARIDE IRON COMPLEX 150 MG CAPSULE PO ×2 (09:02→17:55)
[2022-11-09] MEDS: DOCUSATE SODIUM 100 MG CAPSULE PO ×2 (09:02→17:55)
[2022-11-09] MEDS: MULTIVIT/MIN/PREN/FOL AC/IRON TABLET 1 TAB PO (09:02)
[2022-11-09] MEDS: LABETALOL HCL 100 MG TABLET 400 MG PO ×2 (09:03→21:05)
--- NOTE | 2022-11-09 09:34 | PM.OBPNVD ---
OB - PN: Subj Subjective Date/time seen: 11/09/22 09:34 Interval history: pt delivered 11/07/22, magnesium sulfate discharged. Bp stable, denies headache, visual changes, epigastric pain. pain well managed, urine output good OB - PN: Obj Data Labs 11/08/22 03:55 11/08/22 03:55 OB - PN A/P Plan day: 2 Plan: routine care Comments: pt out on day pass, baby at [facility] will return at for monitoring consider d/c tomorrow if stable Time Spent With Patient Time: Total time spent is greater than 50% in coordination of care (as documented) at patient's floor/unit and/or counseling patient: Review of Systems Review of Systems: All systems reviewed & are unremarkable except as noted in HPI and below Exam Const: General: cooperative, healthy appearing and comfortable Resp: Effort & Inspection: normal respiratory effort Cardio: Rate: regular rate Rhythm: regular rhythm GI: Other: soft incision CDI Back/Spine/Pelvis: Back: no CVA tenderness Skin: General skin exam: normal color Extrem: Right lower extremity: normal to inspection Left lower extremity: normal to inspection
[2022-11-09] MEDS: NIFEdipine 30 MG TAB.ER.24 PO ×2 (11:29→23:52)
--- NOTE | 2022-11-09 19:02 | PC.NURSE ---
Pt. left out on pass to visit baby at 11:30, pain medication and blood pressure medication given prior to discharge. Accompanied by parents. Returned at 1750. Pain medication given. Vitals stable.
[2022-11-09] MEDS: TETANUS,DIPHTHERIA,AC PERTUSSIS ADULT (0.5 ML) BOOSTRIX IM (21:19)
[2022-11-10] MEDS: HYDROcodone/acetaminophen (*CRX) 5-325 MG TABLET 1 TAB PO ×3 (02:14→08:40)
[2022-11-10] MEDS: SIMETHICONE 80 MG TAB.CHEW PO ×2 (02:14→05:02)
[2022-11-10 05:10] VITALS: BP 147/89; PULSE 86; RESP 16; TEMP 36.3; O2SAT 100
--- NOTE | 2022-11-10 07:07 | PM.OBPNVD ---
OB - PN: Subj Subjective Date/time seen: 11/10/22 07:07 Interval history: pt delivered 11/07/22, magnesium sulfate discharged. Bp stable, denies headache, visual changes, epigastric pain. pain well managed, urine output good. OB - PN: Obj Data Labs 11/08/22 03:55 11/08/22 03:55 OB - PN A/P Plan day: 3 Plan: routine care and discharge home Time Spent With Patient Time: Total time spent is greater than 50% in coordination of care (as documented) at patient's floor/unit and/or counseling patient: Review of Systems Review of Systems: All systems reviewed & are unremarkable except as noted in HPI and below Exam Const: General: cooperative, healthy appearing and comfortable Chest: Chest palpation & inspection: normal inspection of the chest Resp: Effort & Inspection: normal respiratory effort Auscultation: clear to auscultation bilaterally Cardio: Rate: regular rate Rhythm: regular rhythm GI: Other: incision cdi Skin: General skin exam: normal color Extrem: Right lower extremity: normal to inspection Left lower extremity: normal to inspection Psych: Appearance: grossly normal
--- NOTE | 2022-11-10 07:22 | PM.OBDSVD ---
DS: Admitting Diagnosis Discharge Date 11/10/22 Admitting Diagnosis preeclampsia DS: Discharge Diagnosis Discharge Diagnosis (1) delivery delivered: Code(s): O82 - Encounter for delivery without indication Status: Acute OB - DS: Summary OB Procedures : None OB Procedures Intrapartum: Spontaneous Vag Delivery OB Procedures: : None Peripartum Data Procedures: Procedures Operation Date: 11/07/22 12:00 Actual Procedure Side Surgeon p Section Olivia Franklin MD Time Spent with Patient Time attestation: Total time spent providing and/or coordinating discharge services: DS: Data Data Completed and Pending Pending studies at discharge: Pending at discharge 11/07/22 12:31 Surgical [PTH] Routine Discharge Plan Discharge Attending physician on discharge: Olivia Franklin Discharging Clinician: Yasmeen Martinez Patient Disposition: Home, Self-Care Activity: pelvic rest Diet: regular Patient Instructions: Antibiotic Form Stand Alone Forms: General Discharge Information Follow-up/Referrals: Yasmeen Martinez, CNM [Certified Nurse [employer]] - 1 Week ([address] franklin for incision check 4 week pp with enoc) Discharge Medications: New hydrocodone-acetaminophen 5-325 mg Tablet 1 tablet PO Q3H PRN (Reason: Moderate Pain (4-6)) Qty: 30 0RF ibuprofen 600 mg Tablet 600 mg PO Q6H PRN (Reason: Cramping) Qty: 30 0RF Continued Slow Fe 142 mg (45 mg iron) Tablet Extended Release 142 mg PO BID PNV [id number] fumarate-FA [] 28 mg iron- 800 mcg Tablet 1 tablet PO DAILY Discontinued labetalol 200 mg tablet 400 mg PO BID Date of admission: 11/07/22 10:00 Primary Care Provider: PHYSICIAN,[employer] Admitting Provider: Olivia Franklin Attending physician on admission: Yasmeen Martinez Condition: Stable
[2022-11-10] MEDS: POLYSACCHARIDE IRON COMPLEX 150 MG CAPSULE PO (07:32)
[2022-11-10] MEDS: DOCUSATE SODIUM 100 MG CAPSULE PO (07:32)
[2022-11-10] MEDS: IBUPROFEN 600 MG TABLET PO (07:33)
[2022-11-10 08:39] VITALS: PULSE 84
[2022-11-10] MEDS: MULTIVIT/MIN/PREN/FOL AC/IRON TABLET 1 TAB PO (08:39)
[2022-11-10] MEDS: LABETALOL HCL 100 MG TABLET 400 MG PO (08:39)
[2022-11-10 08:40] VITALS: BP 151/93; PULSE 87; RESP 16; TEMP 36.3; O2SAT 100
--- NOTE | 2022-11-10 10:25 | PC.NURSE ---
Pt inquired about a breast pump for home. Breast pump given to patient. Pt informed that if insurance does not cover the pump, that she will be responsible for the payment. Pt verbalizes understanding. Papers signed and copy was given to patient.
[2022-11-11 09:00] VITALS: BP 138/82; PULSE 77; RESP 16; TEMP 36.5; O2SAT 99
== END 2022-11-10 10:50 | disposition home or self-care (01) | DRG 788 ==
LOC: ANHOBOP 19:35 → ANHOBPP 19:35 → ANHOB2 11-10 07:12 → ANHOBPP 11-13 09:20
PROVIDERS: Advanced Practice Midwife; Admitting Provider Obstetrics & Gynecology; Visit Provider Obstetrics & Gynecology
PROC: 10D00Z1 Extraction of Products of Conception, Low, Open Approach (ICD-10-PCS; CPT 59514; principal; 2022-11-07 12:00)
DX: O11.4 Pre-existing hypertension with pre-eclampsia, complicating childbirth (principal); Z37.0 Single live birth; Z3A.36 36 weeks gestation of pregnancy; O60.14X0 Preterm labor third trimester with preterm delivery third trimester, not applicable or unspecified; O32.1XX0 Maternal care for breech presentation, not applicable or unspecified; O99.02 Anemia complicating childbirth; D64.9 Anemia, unspecified; O69.89X0 Labor and delivery complicated by other cord complications, not applicable or unspecified
CPT/HCPCS: 36415; 59025; 80053; 81001; 82570; 84156; 84550; 85025; 85027; 86850; 86900; 86901; 87086; 90715; 96372; 99199; A9270; G0378; J0690; J0702; J1885; J2175; J2274; J2371; J2405; J2590; J3475; J3480; J7120